=== PATIENT | female | born 1950 | race Caucasian/White ===

== ENCOUNTER → 2024-05-20 | Outpatient (CLI) | payer MEDICARE, BC, SELFPAY ==
--- NOTE | 2024-05-20 14:18 | BI_ITS ---
MAMMOGRAPHY - UNILATERAL DIAGNOSTIC: LEFT BREAST REASON FOR EXAM: Female, 74 years old. Abnormal screening mammogram. PERTINENT HISTORY: Personal history of breast cancer. Prior right lumpectomy and radiation. Prior left excisional breast biopsy. Sr. with breast cancer. TECHNIQUE: Digital unilateral breast ajith (3D mammographic acquisition) in the CC and MLO projections. 2-D mediolateral oblique (MLO) and craniocaudad (CC) views of the left breast as well as compression spot views were obtained. CAD: Full Field Digital Mammography with Computer Added Detection was performed. COMPARISON: Comparison is made with prior outside examination dated April 18, 2023 and April 20, 2024. FINDINGS: Breast Composition: The breasts are heterogeneously dense, which may obscure small masses. There are no dominant masses or suspicious calcifications. No other significant abnormalities are identified. BI/DIAG MAMM W/CAD, UNILAT IMPRESSION: Negative unilateral diagnostic mammogram. Yearly followup mammogram recommended. (A) ASSESSMENT CATEGORY: BIRADS Category 2: Benign. A letter regarding these results will be sent to the patient by the facility within 30 days. Approximately 10% of breast cancers are not detected by mammography. A normal mammogram should not delay biopsy of a clinically suspicious abnormality. Electronically Signed: Gerardo Soni MD at 15:05 EST ,
== END | disposition home or self-care (01) ==
LOC: OPBI 14:15
PROVIDERS: PCP Family Medicine; Referring Provider Family Medicine; Visit Provider Family Medicine
DX: R92.8 Other abnormal and inconclusive findings on diagnostic imaging of breast (principal)
CPT/HCPCS: 77061; 77065; G0279

== ENCOUNTER → 2024-10-19 | Outpatient (CLI) | payer MEDICARE, BC, SELFPAY ==
--- NOTE | 2024-10-19 06:29 | ECHOD_ITS ---
Reason For Study Reason For Study: CAD/ASHD Procedure This was a 2D Doppler, Color Flow transthoracic echocardiogram. Exam performed in department. Left Ventricle Normal LV size. Left ventricular systolic function is normal. The left ventricular ejection fraction is 70 %. No regional wall motion abnormalities noted. Right Ventricle Normal RV size. Normal systolic function. Atria Normal left atrium. Normal right atrium. Mitral Valve Normal mitral valve. Tricuspid Valve Normal tricuspid valve. Mild (1+) tricuspid valve insufficiency. Pulmonary artery systolic pressure is 28 mmHg. Aortic Valve Trisinus/trileaflet aortic valve. Pulmonic Valve Normal pulmonic valve. Great Vessels Normal aortic root. The pulmonary artery is normal size. Normal inferior vena cava. Pericardium/Pleural No pericardial effusion. MMode/2D Measurements & Calculations LVIDd: 3.8 cm IVSd: 1.2 cm Ao root diam: 2.5 cm LVIDs: 2.3 cm LVPWd: 1.0 cm RVDd: 2.6 cm FS: 39.1 % LAV(MOD-bp): 31.2 ml LVAd ap4: 20.0 cm2 SV(MOD-sp4): 33.2 ml LAV(MOD-bp) Indexed: 18.5 ml/m2 LVLd ap4: 6.9 cm SI(MOD-sp4): 19.7 ml/m2 LAV(MOD-sp2): 37.2 ml EDV(MOD-sp4): 48.4 ml LAV(MOD-sp4): 25.3 ml EDV(sp4-el): 49.5 ml LVAs ap4: 10.1 cm2 LVLs ap4: 5.7 cm ESV(MOD-sp4): 15.2 ml ESV(sp4-el): 15.1 ml EF(MOD-sp4): 68.6 % EF(sp4-el): 69.5 % SV(sp4-el): 34.4 ml LA A4 area: 12.4 cm2 LA dimension(2D): 3.3 cm RA A4 area: 8.8 cm2 TAPSE: 1.3 cm Time Measurements MV dec time: 0.20 sec Doppler Measurements & Calculations MV E max evangelist: 82.1 cm/sec Lat Peak E' Evangelist: 12.4 cm/sec Med Peak E' Evangelist: 9.3 cm/sec MV A max evangelist: 82.3 cm/sec E/E' lat: 6.6 E/E' med: 8.8 MV E/A: 1.00 Ao V2 max: 153.0 cm/sec LV V1 max: 121.3 cm/sec MV dec slope: 402.4 cm/sec2 Ao max P.4 mmHg LV V1 max P.9 mmHg Ao V2 mean: 99.9 cm/sec LV V1 mean P.9 mmHg Ao mean P.6 mmHg LV V1 mean: 79.1 cm/sec Ao V2 VTI: 33.6 cm LV V1 VTI: 26.8 cm AV (velocity ratio): 0.80 PA V2 max: 83.4 cm/sec TR max evangelist: 253.7 cm/sec TR max P.8 mmHg ECHO/Echo Complete Interpretation Summary Normal LV size. Left ventricular systolic function is normal. The left ventricular ejection fraction is 70 %. Pulmonary artery systolic pressure is 28 mmHg. Ordering Physician: Bogdan West Referring Physician: Felipe Dobbins Performed By: Shell Montalvo RDCS, RVT
--- NOTE | 2024-10-19 16:30 | STRESSREP_ITS ---
Stress Test Report Exercise myocardial perfusion stress test. 74-year-old lady with a history of coronary artery disease Stress protocol: Resting EKG demonstrates normal sinus rhythm with a rate of 70 bpm resting blood pressure is 132/70 mmHg. The patient exercised according to the regular Samy protocol for a total duration of 5 minutes and 21 seconds attaining a maximum heart rate of 120 bpm which was 82% of maximum predicted heart rate; the maximum workload was 7 metabolic equivalents. At rest there were no ST or T wave changes noted to suggest ischemia and at peak exercise upsloping ST changes only were noted which did not meet the criteria for ischemia. No clinical angina was noted the test was terminated due to the target heart rate being ach ieved/fatigue. The peak blood pressure was 160/72 mmHg. Rate-pressure product was 18,400. Myocardial perfusion protocol. 12.6 mCi of technetium 99m sestamibi was injected at rest. The patient exer cised according to regular Samy protocol for total duration of 5 minutes and 21-second and at peak exercise 37.1 mCi of technetium 99m sestamibi was injected stress images were obtained stress and rest images were reconstructed in comparing the short axis vertical long and horizontal long axis. Gated images were also obtained. Perfusion SPECT analysis: Review of the stress images demonstrate normal uptake of tracer noted in all areas of the myocardium. The resting images similarly demonstrate normal uptake of tracer noted in all areas of the myocardium. No areas of reversibility are noted to suggest ischemia no previous infarct was noted. Gated SPECT analysis: The gated ejection fraction is 80%. Conclusion: Normal exercise myocardial perfusion stress test at a moderate workload Preserved ejection fraction.
== END | disposition home or self-care (01) ==
PROVIDERS: PCP Family Medicine; Referring Provider Internal Medicine Cardiovascular Disease; Visit Provider Internal Medicine Cardiovascular Disease
DX: I25.10 Atherosclerotic heart disease of native coronary artery without angina pectoris (principal)
CPT/HCPCS: 78452; 93017; 93306; A9500; A4216; J2785